=== PATIENT | male | born 1965 | race American Indian/Alaskan Native ===

== ENCOUNTER 2019-11-06 07:02 | Emergency (ER) | payer BC ==
[2019-11-06] MEDS ORDERED: Bacitracin Oint 1 GM U/D Packet TOP ONE (07:22)
[2019-11-06] MEDS ORDERED: Lidocaine 1% 30 ML SDV INJECT ONE (07:22)
[2019-11-06] MEDS ORDERED: Acetaminophen 325 MG Tab PO ONE (08:10)
[2019-11-06 08:29] LABS: ANION GAP 12.8 mEq/L (7-13); CHLORIDE,CL 102 mmol/L (98-107); SODIUM,NA 140 mmol/L (136-145)
[2019-11-06] MEDS ORDERED: Ondansetron 4 MG/2 ML SDV IV ONE (08:32)
--- NOTE | 2019-11-06 08:32 | EDM.PDOC ---
ED HPI GENERAL MEDICAL PROBLEM - General Chief Complaint: Laceration Stated Complaint: fell and hit head Time Seen by Provider: 11/06/19 07:20 Source of Information: Reports: Patient, RN, RN Notes Reviewed History Limitations: Reports: No Limitations - History of Present Illness INITIAL COMMENTS - FREE TEXT/NARRATIVE: Patient presents to ER with complaint of laceration to the right side of the face. Patient states he did go out last night and had a few beers. She states he was up and in the bathroom this morning, and is unsure what happened. States he slipped or fell and hit his head/face on the counter in the room. Patient first reports he did not lose consciousness. Denies any anticoagulation. As the patient was being sutured, he repeated that he was unsure how this happened, and that he did not remember much of the event. Patient is very concerned as to why this happened. Patient denies dizziness, lightheadedness, chest pains, shortness of breath, nausea, vomiting, diarrhea. Onset: Today, Sudden Right Face/Facial Pain Score (Numeric/FACES): 4 - Related Data Allergies Allergy/AdvReac Type Severity Reaction Status Date / Time No Known Allergies Allergy Verified 11/06/19 07:22 Home Meds: Home Meds . [No Known Home Meds] 11/06/19 [History] Past Medical History HEENT History: Reports: None Cardiovascular History: Reports: None Respiratory History: Reports: None Gastrointestinal History: Reports: None Genitourinary History: Reports: None Neurological History: Reports: None Psychiatric History: Reports: None Endocrine/Metabolic History: Reports: None Hematologic History: Reports: None Immunologic History: Reports: None Oncologic (Cancer) History: Reports: None Dermatologic History: Reports: None - Infectious Disease History Infectious Disease History: Reports: None - Past Surgical History Head Surgeries/Procedures: Reports: None Musculoskeletal Surgical History: Reports: Other (See Below) Other Musculoskeletal Surgeries/Procedures:: knee and neck surgery Social & Family History - Tobacco Use Smoking Status *Q: Never Smoker - Caffeine Use Caffeine Use: Reports: Coffee - Recreational Drug Use Recreational Drug Use: No ED ROS GENERAL - Review of Systems Review Of Systems: Comprehensive ROS is negative, except as noted in HPI. ED EXAM, SKIN/RASH Exam: See Below Exam Limited By: No Limitations General Appearance: Alert, WD/WN, No Apparent Distress Eye Exam: Bilateral Eye: EOMI, Normal Inspection Ears: Normal External Exam, Hearing Grossly Normal Nose: Normal Inspection Throat/Mouth: Normal Inspection, Normal Voice, No Airway Compromise Head: Normocephalic, Other (laceration to the right side of the face) Neck: Normal Inspection, Supple, Non-Tender, Full Range of Motion Respiratory/Chest: No Respiratory Distress, Lungs Clear, Normal Breath Sounds, No Accessory Muscle Use, Chest Non-Tender Cardiovascular: Normal Peripheral Pulses, Regular Rate, Rhythm, No Edema, No Gallop, No JVD, No Murmur, No Rub Peripheral Pulses: 2+: Radial (L), Radial (R) GI/Abdominal: Normal Bowel Sounds, Soft, Non-Tender (Male) Exam: Deferred Rectal (Males) Exam: Deferred Back Exam: Normal Inspection, Full Range of Motion, NT Extremities: Normal Inspection, Normal Range of Motion, Non-Tender, No Pedal Edema, Normal Capillary Refill Neurological: Alert, Oriented, CN II-XII Intact, Normal Cognition, Normal Gait, Normal Reflexes, No Motor/Sensory Deficits Psychiatric: Normal Affect, Normal Mood, Anxious Skin: Warm, Dry, Other (Laceration right side of the face, V shaped, 6cm x 2cm vertical near the right eye, 4cm x 1cm horizontal through the zoroastrianism area of the head) Location, Skin: Head, Face Characteristics: Linear Lymphatic: No Adenopathy ED SKIN PROCEDURES - Laceration/Wound Repair Right Lateral Face Appearance: Subcutaneous Distal NVT: Neuro & Vascular Intact Anesthetic Type: Local Local Anesthesia - Lidocaine (Xylocaine): 1% Plain Local Anesthetic Volume: Other (8cc) Skin Prep: Chlorhexidine (Hibiciens) Exploration/Debridement/Repair: Wound Explored, In a Bloodless Field, Explored to Base, No Foreign Material Found, Multiple Flaps Aligned Closed with: Sutures Lac/Wound length In cm: 10 Suture Size: 6-0 # of Sutures: 18 Suture Type: Nylon, Interrupted Drain Placement: No Sterile Dressing Applied: Nurse Tetanus Status Addressed: Yes Complications: No Course - Vital Signs Last Recorded V/S: Last Vital Signs Temp 97.4 F 11/06/19 07:14 Pulse 89 11/06/19 07:14 Resp 16 11/06/19 07:14 BP 122/89 11/06/19 07:14 Pulse Ox 100 11/06/19 07:14 - Orders/Labs/Meds Orders: Active Orders 24 hr Category Date Time Status EKG 12 Lead [EKG Documentation Completion] [RC] STAT Care 11/06/19 08:02 Active Head wo Cont [CT] Urgent Exams 11/06/19 08:09 Taken Sodium Chloride 0.9% [Normal Saline] 1,000 ml Med 11/06/19 08:48 Active IV .BOLUS Medication Orders Sodium Chloride (Normal Saline) 1,000 mls @ 999 mls/hr IV .BOLUS ONE Stop: 11/06/19 09:48 Last Admin: 11/06/19 08:50 Dose: 999 mls/hr Labs: Laboratory Tests 11/06/19 11/06/19 11/06/19 Range/Units 08:00 08:00 08:00 WBC 3.5 L (5.0-10.0) 10^3/uL RBC 5.20 (4.6-6.2) 10^6/uL Hgb 15.1 (14.0-18.0) g/dL Hct 42.8 (40.0-54.0) % MCV 82.3 (80-100) fL MCH 29.0 (27.0-34.0) pg MCHC 35.3 H (33.0-35.0) g/dL Plt Count 221 (150-450) 10^3/uL Neut % (Auto) 56.4 (42.2-75.2) % Lymph % (Auto) 30.1 (20.5-50.1) % Overton % (Auto) 10.0 H (2-8) % Eos % (Auto) 3.2 H (1.0-3.0) % Baso % (Auto) 0.3 (0.0-1.0) % Sodium 140 (136-145) mmol/L Potassium 3.8 (3.5-5.1) mmol/L Chloride 102 (98-107) mmol/L Carbon Dioxide 29 (21-32) mmol/L Anion Gap 12.8 (7-13) mEq/L BUN 13 (7-18) mg/dL Creatinine 0.99 (0.70-1.30) mg/dL Est Cr Clr Drug Dosing 84.31 mL/min Estimated GFR (MDRD) > 60 BUN/Creatinine Ratio 13.1 (No establ ref range) Glucose 114 H (74-99) mg/dL Calcium 9.0 (8.5-10.1) mg/dL Total Bilirubin 0.5 (0.2-1.0) mg/dL AST 23 (15-37) U/L ALT 40 (16-63) U/L Alkaline Phosphatase 44 L (46-116) U/L Troponin I < 0.017 (0.000-0.056) ng/mL Total Protein 7.8 (6.4-8.2) g/dL Albumin 4.3 (3.4-5.0) g/dL Globulin 3.5 Albumin/Globulin Ratio 1.2 Ethyl Alcohol 167 (0) mg/dL Meds: Medications Generic Name Dose Route Start Last Admin Trade Name Freq PRN Reason Stop Dose Admin Sodium Chloride 1,000 mls @ 999 mls/hr 11/06/19 08:48 11/06/19 08:50 Normal Saline IV 11/06/19 09:48 999 mls/hr .BOLUS ONE Administration Discontinued Medications Generic Name Dose Route Start Last Admin Trade Name Freq PRN Reason Stop Dose Admin Acetaminophen 650 mg 11/06/19 08:10 11/06/19 08:19 Tylenol PO 11/06/19 08:11 650 mg NOW ONE Administration Bacitracin 2 dose 11/06/19 07:22 11/06/19 07:25 Bacitracin Oint 1 Gm TOP 11/06/19 07:23 2 dose ONETIME ONE Administration Lidocaine HCl 30 ml 11/06/19 07:22 11/06/19 07:25 Xylocaine-Mpf 1% INJECT 11/06/19 07:23 30 ml ONETIME ONE Administration Ondansetron HCl 4 mg 11/06/19 08:32 11/06/19 08:37 Zofran IV 11/06/19 08:33 4 mg ONETIME ONE Administration - Radiology Interpretation Free Text/Narrative:: Head CT: FINDINGS: Brain: Minimal patchy hypodensity of the cerebral white matter: Nonspecific but likely secondary to chronic microvascular ischemic changes in end-vessel distribution. Ventricles: Normal. No ventriculomegaly. Bones/joints: Unremarkable. No acute fracture. Sinuses: Mild mucoperiosteal thickening of the paranasal sinuses. Mastoid air cells: Visualized mastoid air cells are well aerated. Soft tissues: Right frontal soft tissue swelling and soft tissue air compatible with laceration. IMPRESSION: Right frontal soft tissue swelling and soft tissue air compatible with laceration but no evidence of acute intracranial pathology. Remainder of findings as described above. Thank you for allowing us to participate in the care of your patient. Dictated and Authenticated by: Gayle Niño MD 11/06/2019 8:37 AM Central Time ([place] & [place]) See rad report Departure - Departure Time of Disposition: 09:29 Disposition: Home, Self-Care 01 Condition: Fair Clinical Impression: Laceration Fall at home Qualifiers: Encounter type: initial encounter Qualified Code(s): W19.XXXA - Unspecified fall, initial encounter Concussion Qualifiers: Encounter type: initial encounter Loss of consciousness presence/duration: with LOC of unspecified duration Qualified Code(s): S06.0X9A - Concussion with loss of consciousness of unspecified duration, initial encounter - Discharge Information *PRESCRIPTION DRUG MONITORING PROGRAM REVIEWED*: No *COPY OF PRESCRIPTION DRUG MONITORING REPORT IN PATIENT MIKEL: No Instructions: Concussion, Adult, [id number], Post-Concussion Syndrome, Easy- to-Read, Laceration Care, Adult, [id number], Sutures, Marcin, or Adhesive Wound Closure, [id number] Forms: ED Department Discharge Additional Instructions: Use Tylenol and/or ibuprofen as directed for pain Rest in a quiet dark room Follow-up with your primary care provider in 7 to 10 days to have sutures removed Monitor for signs of infection i.e. fever or chills, increased redness, increased pain, increased warmth, drainage Follow-up with your primary care provider or return to the ER with any worsening of problems Sepsis Event Note - Evaluation Sepsis Screening Result: No Definite Risk - Focused Exam Vital Signs: Vital Signs Temp Pulse Resp BP Pulse Ox 11/06/19 07:14 97.4 F 89 16 122/89 100 Date Exam was Performed: 11/06/19 Time Exam was Performed: :29 - My Orders Last 24 Hours: My Active Orders 11/06/19 08:02 EKG 12 Lead [EKG Documentation Completion] [RC] STAT 11/06/19 08:09 Head wo Cont [CT] Urgent 11/06/19 08:48 Sodium Chloride 0.9% [Normal Saline] 1,000 ml IV .BOLUS - Assessment/Plan Last 24 Hours: My Active Orders 11/06/19 08:02 EKG 12 Lead [EKG Documentation Completion] [RC] STAT 11/06/19 08:09 Head wo Cont [CT] Urgent 11/06/19 08:48 Sodium Chloride 0.9% [Normal Saline] 1,000 ml IV .BOLUS
[2019-11-06] MEDS ORDERED: Sodium Chloride 0.9% 1,000 ML IV ONE (08:48)
== END 2019-11-06 09:37 | disposition home or self-care (01) ==
LOC: DL.ED 07:02
DX: S06.0X9A Concussion with loss of consciousness of unspecified duration, initial encounter (principal); S01.81XA Laceration without foreign body of other part of head, initial encounter; W01.198A Fall on same level from slipping, tripping and stumbling with subsequent striking against other object, initial encounter
CPT/HCPCS: 12015; 12044; 36415; 70450; 80053; 80307; 84484; 85025; 93005; 96361; 96374; 99284-25; A9270-GY; J2001; J2405; J7030

== ENCOUNTER 2021-12-20 13:26 | Emergency (ER) | payer BC, OTHER ==
[2021-12-20] MEDS ORDERED: Dexamethasone 4 MG/ML SDV IM ONE (14:42)
[2021-12-20] MEDS ORDERED: methylPREDNISolone Sodium Succinate 125 MG/2 ML SDV IM ONE (14:47)
== END 2021-12-20 14:57 | disposition home or self-care (01) ==
LOC: DL.ED 13:26
DX: S89.92XA Unspecified injury of left lower leg, initial encounter (principal); Z86.16 Personal history of COVID-19; W01.0XXA Fall on same level from slipping, tripping and stumbling without subsequent striking against object, initial encounter; Y93.02 Activity, running
CPT/HCPCS: 73562; 96372; 99283; J2930

== ENCOUNTER 2022-04-06 17:04 | Emergency (ER) | payer OTHER ==
[2022-04-06 18:02] LABS: ANION GAP 14.1 mEq/L (7-13); CHLORIDE,CL 101 mmol/L (98-107); PTT,PARTIAL THROMBOPLSTIN TIME 22.2 SEC (22.0-34.0); SODIUM,NA 137 mmol/L (136-145)
[2022-04-06 18:08] LABS: ESTIMATED GFR 66 mL/min (>=60)
[2022-04-06 19:00] LABS: AMPHETAMINES,URINE NEGATIVE (NEGATIVE); BARBITURATES,URINE NEGATIVE (NEGATIVE); BENZODIAZEPINE,URINE NEGATIVE (NEGATIVE); MDMA (ECSTASY), URINE NEGATIVE (NEGATIVE); METHADONE,URINE NEGATIVE (NEGATIVE); METHAMPHETAMINES,URINE NEGATIVE (NEGATIVE); OPIATES,URINE NEGATIVE (NEGATIVE); OXYCODONE,URINE NEGATIVE (NEGATIVE); PHENCYCLIDINE,URINE NEGATIVE (NEGATIVE); TCA,URINE NEGATIVE (NEGATIVE)
== END 2022-04-06 19:19 | disposition home or self-care (01) ==
LOC: DL.ED 17:04
DX: R07.89 Other chest pain (principal); R41.0 Disorientation, unspecified; Z20.822 Contact with and (suspected) exposure to COVID-19
CPT/HCPCS: 36415; 71045; 80053; 80305-QW; 80307; 82150; 82947; 83605; 83690; 83880; 84484; 85025; 85610; 85730; 86140; 93005; 93010; 99284; 99285; U0002

== ENCOUNTER 2023-04-02 10:31 | Emergency (ER) | payer OTHER ==
[2023-04-02] MEDS ORDERED: Sodium Chloride 0.9% 10 ML Syringe FLUSH PRN (10:46)
[2023-04-02 10:54] LABS: BASOPHILS PERCENT AUTO 0.4 % (0.0-1.0); EOSINOPHILS PERCENT AUTO 3.1 % (1.0-3.0); HEMOGLOBIN 13.7 g/dL (14.0-18.0); LYMPHOCYTES PERCENT AUTO 26.3 % (20.5-50.1); MEAN CORPUSCULAR HEMOGLOBIN 29.3 pg (27.0-34.0); MEAN CORPUSCULAR HGB CONC 34.3 g/dL (33.0-35.0); MEAN CORPUSCULAR VOLUME 85.7 fL (80-100); MONOCYTES PERCENT AUTO 12.5 % (2-8); NEUTROPHILS PERCENT AUTO 57.7 % (42.2-75.2); PLATELET COUNT,PLT 234 10^3/uL (150-450); RED BLOOD CELL COUNT 4.67 10^6/uL (4.6-6.2); WHITE BLOOD CELL COUNT,WBC 4.8 10^3/uL (5.0-10.0)
[2023-04-02 11:16] LABS: A/G RATIO 1.1; ALBUMIN 3.8 g/dL (3.4-5.0); ANION GAP 12.9 mEq/L (7-13); BILIRUBIN TOTAL 0.6 mg/dL (0.2-1.0); BUN/CREATININE RATIO 12.2 (No establ ref range); CALCIUM 9.3 mg/dL (8.5-10.1); CREATININE 1.15 mg/dL (0.70-1.30); EST CRCL DRUG DOSING (CG) 69.16 mL/min; POTASSIUM,K 3.9 mmol/L (3.5-5.1); PROTEIN TOTAL,TP 7.4 g/dL (6.4-8.2)
[2023-04-02 11:54] LABS: PROTHROMBIN TIME 10.6 SEC (9.0-12.0); PTT,PARTIAL THROMBOPLSTIN TIME 24.1 SEC (22.0-34.0)
== END 2023-04-02 13:26 | disposition home or self-care (01) ==
LOC: DL.ED 10:31
DX: H53.30 Unspecified disorder of binocular vision (principal); Z86.16 Personal history of COVID-19; Z79.899 Other long term (current) drug therapy
CPT/HCPCS: 36415; 70450; 80053; 85025; 85610; 85730; 99284; J3490

== ENCOUNTER 2024-03-25 06:23 | Day surgery (SDC) | payer OTHER ==
[~2024-03-25 06:23] MED LIST: Midazolam 1 MG/ML 2 ML SDV ONE; fentaNYL 100 MCG/2 ML SDV ONE
[2024-03-25] MEDS ORDERED: Midazolam 1 MG/ML 2 ML SDV IV ONE (06:24)
[2024-03-25] MEDS ORDERED: fentaNYL 100 MCG/2 ML SDV IV ONE (06:24)
[2024-03-25] MEDS: Dextrose 5%-0.45% NaCl 1,000 ML IV SCH (06:48)
[2024-03-25] MEDS: fentaNYL 100 MCG/2 ML SDV IV ONE ×2 (06:51→06:52)
[2024-03-25] MEDS: Midazolam 1 MG/ML 2 ML SDV IV ONE ×3 (06:53→06:55)
== END 2024-03-25 08:29 | disposition home or self-care (01) ==
LOC: DL.ENDO 06:23
PROVIDERS: ATTEND Internal Medicine Gastroenterology
DX: Z12.11 Encounter for screening for malignant neoplasm of colon (principal); K57.30 Diverticulosis of large intestine without perforation or abscess without bleeding
CPT/HCPCS: J2250; J3010; J7799

== ENCOUNTER 2025-02-28 21:03 | Emergency (ER) | payer OTHER ==
[2025-02-28] MEDS ORDERED: Sodium Chloride 0.9% 10 ML Syringe FLUSH PRN (21:21)
[2025-02-28 21:28] LABS: BASOPHILS PERCENT AUTO 0.8 % (0.0-1.0); EOSINOPHILS PERCENT AUTO 11.5 % (1.0-3.0); LYMPHOCYTES PERCENT AUTO 21.2 % (20.5-50.1); MONOCYTES PERCENT AUTO 13.5 % (2-8); NEUTROPHILS PERCENT AUTO 53.0 % (42.2-75.2); PLATELET COUNT,PLT 215 10^3/uL (150-450); RED BLOOD CELL COUNT 4.53 10^6/uL (4.6-6.2); WHITE BLOOD CELL COUNT,WBC 5.0 10^3/uL (5.0-10.0)
[2025-02-28] MEDS: Dexamethasone 4 MG/ML SDV IVPUSH ONE (21:39)
[2025-02-28] MEDS: Magnesium Sulfate 2 GM/50 mL 2 GM in Premix Bag 1 BAG IV ONE ×2 (21:39→22:01)
[2025-02-28 21:47] LABS: A/G RATIO 1.0; ALANINE AMINOTRANSFERASE,ALT 43 U/L (16-63); ASPARTATE AMNIOTRANSFERASE,AST 20 U/L (15-37); BILIRUBIN TOTAL 0.3 mg/dL (0.2-1.0); BLOOD UREA NITROGEN,BUN 23 mg/dL (7-18); CARBON DIOXIDE,CO2 28 mmol/L (21-32); CHLORIDE,CL 107 mmol/L (98-107); CREATININE 1.19 mg/dL (0.70-1.30); EST CRCL DRUG DOSING (CG) 65.19 mL/min; GLUCOSE RANDOM 110 mg/dL (70-99); POTASSIUM,K 4.0 mmol/L (3.5-5.1); PROTEIN TOTAL,TP 6.9 g/dL (6.4-8.2); SODIUM,NA 142 mmol/L (136-145)
[2025-02-28 21:48] LABS: ESTIMATED GFR 70 mL/min (>=60)
[2025-02-28] MEDS: Iopamidol 755 Mg/ML 100 ML Bottle IVPUSH ONE (22:17)
[2025-02-28 22:28] LABS: T4 FREE 0.75 ng/dL (0.76-1.46); TSH ULTRASENSITIVE 1.85 uIU/mL (0.36-3.74)
[2025-02-28 23:14] LABS: O2 DELIVERY DEVICE ROOM AIR
[2025-02-28 23:18] LABS: BASE EXCESS VENOUS 0.3 mmol/l ((-2)-(+3)); BICARBONATE,VENOUS 26 mmol/l (19-25); O2 SATURATION VENOUS 70.5 % (60-80); PCO2 VENOUS 46 mmHg (41-51); PH,VENOUS 7.36 (7.31-7.41); PO2 VENOUS 53 mmHg (35-42)
[2025-03-01] MEDS: Formoterol/Mometasone 200-5 MCG 8.8 GM Inhaler INH ONE (01:44)
== END 2025-03-01 01:50 | disposition home or self-care (01) ==
LOC: DL.ED 21:03
DX: J45.909 Unspecified asthma, uncomplicated (principal); Z79.899 Other long term (current) drug therapy; Z86.16 Personal history of COVID-19
CPT/HCPCS: 36415; 70491; 71045; 71275; 80053; 82803; 83735; 84439; 84443; 84484; 85025; 86140; 93005; 96365; 96366; 96375; 99285; A9270; J1100; J3475; J3535; J7512; Q9967